=== PATIENT | male | born 1985 | race Hispanic/Latino ===

== ENCOUNTER 2017-11-22 08:33 | Emergency (ER) | payer OTHER ==
[~2017-11-22] VITALS: Ht 172.7 cm; Wt 90.7 kg
[2017-11-22] MEDS ORDERED: LEVOTHYROXINE88 MCG PO (08:47)
[2017-11-22] MEDS ORDERED: NORCO 5-325 TA1 EACH PO (09:52)
[2017-11-22] MEDS ORDERED: ZOFRAN ODT4 MG PO (09:52)
[2017-11-22] MEDS ORDERED: IBUPROFEN600 MG PO (09:52)
== END 2017-11-22 10:57 | disposition home or self-care (01) ==
LOC: ED 08:33
DX: K80.20 Calculus of gallbladder without cholecystitis without obstruction (principal); K76.0 Fatty (change of) liver, not elsewhere classified; R73.9 Hyperglycemia, unspecified; F17.200 Nicotine dependence, unspecified, uncomplicated; Z79.899 Other long term (current) drug therapy
CPT/HCPCS: 76705; 80053; 81001; 83690; 85025; 96361; 96374; 96375; 99284; J1885; J2405; J7030

== ENCOUNTER 2018-09-06 04:43 | Observation (INO) | payer OTHER ==
[~2018-09-06] VITALS: Ht 172.7 cm; Wt 81.2 kg
[~2018-09-06 04:43] MED LIST: IBUPROFEN600 MG PO; LEVOTHYROXINE88 MCG PO; NORCO 5-325 TA1 EACH PO; ZOFRAN ODT4 MG PO
--- NOTE | 2018-09-06 08:45 | NUR ---
NEW ADMIT TO THE FLOOR. PT AWAKE, ALERT AND ORIENTED X3. ORIENTED PT TO ROOM AND CALL LIGHT. AT BEDSIDE AND TRANSLATING NEEDED, PT SPEAKS LITTLE KYRGYZ. IS FLUENT IN KYRGYZ. PT ABLE TO UNDERSTAND SOME WORDS WHEN COMMUNICATING. PT STATES PAIN IS "OK" AND "NO" FEELING SICK AT THIS TIME. PT VOIDING Q/S. PERSONAL SUPPLIES AND CALL LIGHT WITHIN REACH. NO NEEDS.
--- NOTE | 2018-09-06 09:39 | NUR ---
PATIENT RESTING IN BED. IN ROOM. VITAL SIGNS AND I&O DONE. CALL LIGHT WITHIN REACH. NO OTHER NEEDS AT THIS TIME
--- NOTE | 2018-09-06 10:05 | NUR ---
ADMIN DILAUDID 0.6MG IVP FOR REPORTS OF 7/10 ABD PAIN.
--- NOTE | 2018-09-06 10:54 | NUR ---
ADMIN ZOFRAN 8MG IVP FOR N/V.
--- NOTE | 2018-09-06 11:11 | NUR ---
PATIENT RESTING IN BED. IN ROOM. PATIENT CLEANED HIS BODY WITH SURGICAL WIPES. PATIENT USING A CLEAN GOWN. CALL LIGHT WITHIN REACH. NO OTHER NEEDS AT THIS TIME
--- NOTE | 2018-09-06 11:44 | CONS ---
[facility] [address] [place], [place] [address] Signed DATE OF CONSULTATION: 09/06/2018 CHIEF COMPLAINT: Right upper quadrant abdominal pain. HISTORY OF PRESENT ILLNESS: Coy is a 33-year-old gentleman who is known about his gallstone for quite some time. In fact, he took ursodiol in hopes that it would dissolve. It actually increased in size. It now measures around 1.4 to 1.9 cm and is stuck in the neck of his gallbladder. He finally had severe right upper quadrant abdominal pain yesterday with nausea and some diarrhea. He came to the emergency room for evaluation. In the ER, he had pain in the right upper quadrant with a normal white count and normal liver function test. His last ultrasound was in March of 2018. That showed the stone in the neck of the gallbladder, but an unremarkable common bile duct with some fatty liver. Consequently, the ultrasound was not repeated last night. The ER doctor called me and asked me to admit him as a general surgeon on-call. He has been given IV fluids, pain control, and his Levaquin and Flagyl. His is with him today to help interpret. PAST MEDICAL HISTORY: Hypothyroidism and cholelithiasis. PAST SURGICAL HISTORY: None. SOCIAL HISTORY: He likes to smoke. He has few drinks each week. He is to Maria Del Carmen at [phone]. They have 3 children together. He works at the [employer] in [place], [place]. Sissy Albarran is his primary care provider. They prefer the [facility]. FAMILY HISTORY: Mom had diabetes. Dad and his paternal grandfather both had renal failure. His dad was an alcoholic. REVIEW OF SYSTEMS: He had 10 systems reviewed. He mentioned ursodiol for the gallstone. It unfortunately did not work. ALLERGIES: None. MEDICATIONS: 1. [place] 5 mg p.r.n. Electronically Signed By: MAMI ERICKSON MD 09/06/18 1144 PATIENT NAME: COY LIZARRAGA CONSULTATION DATE OF : 85 REPORT #: [id number] PHYSICIAN: MAMI ERICKSON MD PCP: SISSY ALBARRAN PA-C REPORT IS CONFIDENTIAL AND NOT TO BE RELEASED WITHOUT AUTHORIZATION [facility] [address] [place] [id number] Signed 2. Levothyroxine 88 mcg p.o. daily. PHYSICAL EXAMINATION: VITAL SIGNS: His blood pressure is 134/87, heart rate 71, his respiratory rate 18, temperature is 97.8. He is 97% on room air. He is 5 feet 8 inches tall. He is 81 kg. GENERAL: Coy is a 33-year-old gentleman lying supine in his hospital bed. His is at the bedside. She helps interpret. He is obviously in some distress from the pain in his right upper quadrant. He is not jaundiced. LUNGS: Clear to auscultation bilaterally. HEART: Regular rate and rhythm. ABDOMEN: Generally soft and flat with some tenderness in the right upper quadrant and in the mid epigastric area. LABORATORY DATA: His white blood cell count is 7.9, neutrophils 54, hemoglobin 14, potassium 3.3, BUN 15, creatinine 0.87. Urinalysis is negative. Total bilirubin is 0.3. AST 26, ALT 47, alkaline phosphatase 67, albumin 4.3, lipase 14. RADIOGRAPHIC STUDIES: The ultrasound from 04/02/2018 shows some fatty liver with a 1.4 x 1.9 cm stuck in the neck of the gallbladder. The common bile duct was unremarkable. ASSESSMENT AND PLAN: Coy is a 33-year-old gentleman who has known cholelithiasis, cholecystitis. It is apparently stuck in the neck of his gallbladder. He is certainly having pain at this point. He has been admitted given IV fluids and antibiotics. I met with Coy and his . I gave him a pamphlet on the gallbladder written in Irish. We did look at that together with his helping to interpret. He understands the location and function of the gallbladder. We have reviewed laparoscopic versus open cholecystectomy. We have reviewed the idea of an intraoperative cholangiogram and possible stone in the bile duct. He understands there is risk including, but not limited to bleeding, infection, scarring, change in contour of the skin, damage to bowel, damage to main bile duct, incisional hernias, and other unforeseen comorbidities. He has expressed understanding and would like to proceed. Mami Erickson MD [facility]/MODL /[id number] Electronically Signed By: MAMI ERICKSON MD 09/06/18 1144 PATIENT NAME: COY LIZARRAGA CONSULTATION DATE OF : 85 REPORT #: [id number] PHYSICIAN: MAMI ERICKSON MD PCP: SISSY ALBARRAN PA-C REPORT IS CONFIDENTIAL AND NOT TO BE RELEASED WITHOUT AUTHORIZATION [facility] [address] [place], [place] [address] Signed cc: Sissy Erickson MD Copies: MAMI ERICKSON MD ~ Electronically Signed By: MAIM ERICKSON MD 09/06/18 1144 PATIENT NAME: COY LIZARRAGA CONSULTATION DATE OF : 85 REPORT #: [id number] PHYSICIAN: MAMI ERICKSON MD PCP: SISSY ALBARRAN PA-C REPORT IS CONFIDENTIAL AND NOT TO BE RELEASED WITHOUT AUTHORIZATION
--- NOTE | 2018-09-06 12:23 | NUR ---
PT LEFT UNIT FOR SURGERY.
--- NOTE | 2018-09-06 14:18 | NUR ---
09/06/18 1418 Maria Ines Alcala 1347 - PT ARRIVES TO PACU ON 6 L VIA MASK WITH ORAL AIRWAY IN PLACE. PT RESPONSIVE TO VERBAL STIMULUS BUT DOES NOT OPEN EYES. OFFICIAL COURT REPORTER AT BEDSIDE. VSS. SATS 96%. 1350- PT OPENS EYES AND TRIES TO TALK. ORAL AIRWAY REMOVED BY OFFICIAL COURT REPORTER. PT REPORTS PAIN. OFFICIAL COURT REPORTER MEDICATES PT FOR PAIN. PT DENIES NAUSEA. VS. PT TITRATED TO RA WITH SATS >90%. 1358- PT DESATS TO 88%. 2 L VIA NC APPLIED. PT ENC TO COU8GH AND DEEP BREATHE.
--- NOTE | 2018-09-06 15:21 | NUR ---
PT BACK FROM SURGERY. PT ALERT AND ORIENTED X3. PT ON RA, RESP EVEN AND NON LABORED. PT DENIES N/V. X5 LAP SITES NOTED TO ABD, ALL COVERED WITH DRESSING; CDI. ICE OVER SITES, TOLERATING WELL BY PT. PT GIVEN WATER AND JELLO. PT VOIDED 600ML. PERSONAL SUPPLIES WITHIN REACH. NO NEEDS AT THIS TIME. CALL LIGHT WITHIN REACH.
[2018-09-06] MEDS ORDERED: NORCO 10-325 T1 EACH PO (15:39)
[2018-09-06] MEDS ORDERED: PROMETHAZINE HC25 M1 PO (15:40)
--- NOTE | 2018-09-06 16:13 | NUR ---
PATIENT RESTING IN BED. IN ROOM. PATIENT'S DINNER ORDERED. CALL LIGHT WITHIN REACH. NO OTHER NEEDS AT THIS TIME
--- NOTE | 2018-09-06 16:28 | NUR ---
ADMIN DILAUDID 1MG IVP AND ZOFRAN 8MG IVP FOR REPORTS OF 8/10 ABD CRAMPING AND NAUSEA. PT AWAKE, ALERT AND ORIENTED. DRESSINGS' TO ABD ARE CDI, ICE TOLERATED WELL OVER X5 LAP SITES. PT ENCOURAGED TO DRINK FLUIDS. DINNER ORDERS. PT VOIDING Q/S. VS TAKEN AND ARE STABLE. AT BEDSIDE. PERSONAL SUPPLIES AND CALL LIGHT WTIHIN REACH. NO NEEDS AT THIS TIME.
--- NOTE | 2018-09-06 16:51 | NUR ---
PATIENT RESTING IN BED. FAMILY IN ROOM. VITAL SIGNS DONE. CALL LIGHT WITHIN REACH. NO OTHER NEEDS AT THIS TIME
--- NOTE | 2018-09-06 17:11 | NUR ---
PT IS AWAKE VISITING WITH FAMILY IN ROOM, DINNER ORDERED. DENIES NAUSEA AT THIS TIME. RATES PAIN 4/10.
--- NOTE | 2018-09-06 17:29 | NUR ---
ATE 50% OF DINNER, DRINKING FLUIDS WELL. NORCO GIVEN FOR PAIN AFTER EATING. REMAONS ALERT AND VISITING WITH FAMILY. REVIEWED S/SX TO REPORT AND FOLLOW UP APPOINTMENT WITH DR ERICKSON. VERBALIZES UNDERSTANDING, WILL CONT. TO MONITOR FOR TOLERANCE TO PAIN MEDICATION. SCOPE SITES CDI.
--- NOTE | 2018-09-06 17:51 | NUR ---
PATIENT RESTING IN BED. FAMILY IN ROOM. FINAL VITAL SIGNS AND I&O WERE OBTAINED PRIOR TO DISCHARGE FROM THE UNIT
--- NOTE | 2018-09-06 18:00 | NUR ---
DRESSED AND STATES HE WANTS TO GO HOME, DENIES ANY QUESTIONS, HERE TO TRANSPORT HOME. DC AT THIS TIME.
--- NOTE | 2018-09-07 06:55 | OR ---
[facility] [address] [place], [place] [address] Signed DATE OF OPERATION: 09/06/2018 SURGEON: Mami Erickson MD PREOPERATIVE DIAGNOSIS: [id number] cholecystitis with cholelithiasis. POSTOPERATIVE DIAGNOSIS: Mzexl-sb-qrohdda cholecystitis with cholelithiasis. PROCEDURE: Laparoscopic cholecystectomy with intraoperative cholangiogram. ESTIMATED BLOOD LOSS: None. FINDINGS: The intraoperative cholangiogram was unremarkable. The gallstone was larger than 10 mm in diameter in the neck of the gallbladder. He had significant cholesterolosis. He had moderate to severe inflammation to the gallbladder wall with [id number] thickening of the gallbladder wall. INDICATIONS: Coy is a 33-year-old gentleman who has known about his gallstone actually for several years. He tried to take ursodiol to help dissolve the stone. Unfortunately, the followup ultrasound showed that the stone actually increased in size. His last ultrasound was in March of 2018. He does have some fatty liver with a stone measuring 1.4 x 1.9 cm in the neck of his gallbladder. The common bile duct was unremarkable. He had developed significant right upper quadrant abdominal pain last night with nausea and some diarrhea. He therefore came to emergency room for evaluation. He was tender in the right upper quadrant with a normal white count of 7.9. Liver function tests were fine. Lipase was also fine. Ultrasound was not repeated. I was asked to admit him overnight as a general surgeon on-call. He received Levaquin and Flagyl along with pain control, and IV fluids. I met with Fatoumata, his , this morning. I brought with me a [employer] brochure written in Upper Sorbian to share with them. His did an excellent job interpreting. We looked at the [employer] brochure very carefully. He understands the location and function of the gallbladder. We reviewed laparoscopic versus open cholecystectomy. He understands there is risk of surgery including, but not limited to bleeding, infection, scarring, change in contour of the skin, damage to bowel, damage to main bile duct, incisional hernias and other unforeseen comorbidities. 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 They had expressed understanding and wished to proceed. PROCEDURE NOTE: Coy was taken in the operating room and placed in the supine position under general endotracheal tube anesthesia. He was on preoperative antibiotics and we gave him his subcutaneous heparin in the OR. SCDs were utilized. He was then prepped and draped in the usual sterile fashion. All trocars were then placed in usual positions under direct visualization camera without difficulty. We were unable to actually grasp the gallbladder. We created a small hole near the fundus with our cautery and suctioned out mostly clear green bile. He clearly had a large stone in the neck of his gallbladder. It took just a minute to push that stone up and away from the neck of the gallbladder. the triangle of [place] was then carefully dissected free and a clip was placed across the cystic artery and it was divided. We then introduced our intraoperative cholangiocatheter into the cystic duct. The intraoperative cholangiogram was then performed. The contrast flowed quite readily throughout the bile duct and into the duodenum. There were no filling defects. The cystic duct stump was then secured with a PDS Endoloop and 2 clips were placed across the cystic duct stump to young its location. After this, the gallbladder was removed from the gallbladder fossa with the help of the cautery and placed into an EndoCatch bag. The right upper quadrant was irrigated and suctioned out until clear. We then used our laparoscopic suturing device to pass 0 Vicryl suture on either side of the fascia of the subxiphoid trocar site. We had taken pictures throughout for photodocumentation. The gas was then allowed to escape and all the trocars were then removed. The gallbladder was passed off the table to our circulating nurse. The gallbladder was opened and pictures were taken for photodocumentation. The fascia of the supraumbilical trocar site was closed with interrupted in simple [id number] 0 Vicryl sutures. Local anesthetic was copiously injected into all trocar sites. Each trocar site was then closed with interrupted 3-0 Monocryl sutures. Dry gauze and tape were applied to all incisions. Coy was awakened from his anesthesia, extubated in the OR, and taken to recovery room in stable condition. Mami Erickson MD [facility]/MODL /[id number] Electronically Signed By: MAMI ERICKSON MD 09/07/18 0655 PATIENT NAME: COY LIZARRAGA OPERATIVE REPORT DATE OF : 85 REPORT #: [id number] PHYSICIAN: MAMI ERICKSON MD PCP: SISSY LOPEZ PA-C REPORT IS CONFIDENTIAL AND NOT TO BE RELEASED WITHOUT AUTHORIZATION [address] [place], [place] [address] Signed cc: JAYLA Warren MD Andrew L Bower, MD Copies: BRANDYN MOORE MD, ANDREW L MD ~ Electronically Signed By: MAMI ERICKSON MD 09/07/18 0655 PATIENT NAME: COY LIZARRAGA OPERATIVE REPORT DATE OF : 85 REPORT #: [id number] PHYSICIAN: MAMI ERICKSON MD PCP: SISSY LOPEZ PA-C REPORT IS CONFIDENTIAL AND NOT TO BE RELEASED WITHOUT AUTHORIZATION
== END 2018-09-06 18:05 | disposition home or self-care (01) ==
LOC: ED 04:43 → MS 04:45
PROVIDERS: ADMIT Colon & Rectal Surgery
PROC: BF101ZZ Fluoroscopy of Bile Ducts using Low Osmolar Contrast (ICD-10-PCS; 2018-09-06)
PROC: 0FT44ZZ Resection of Gallbladder, Percutaneous Endoscopic Approach (ICD-10-PCS; principal; 2018-09-06 12:30)
DX: K80.12 Calculus of gallbladder with acute and chronic cholecystitis without obstruction (principal); K76.0 Fatty (change of) liver, not elsewhere classified; F17.210 Nicotine dependence, cigarettes, uncomplicated; E03.9 Hypothyroidism, unspecified; Z79.899 Other long term (current) drug therapy; Z79.891 Long term (current) use of opiate analgesic
CPT/HCPCS: 00790; 74300; 80053; 81001; 83690; 85025; 96361; 96365; 96375; 96376; 99284-25; 99406; C9113; G0378; J0330; J1170; J1644; J1885; J1956; J2250; J2405; J2704; J3010; J7030; J7120; Q9967

== ENCOUNTER 2022-08-01 16:57 | Emergency (ER) | payer OTHER ==
[~2022-08-01] VITALS: Ht 172.7 cm; Wt 81.0 kg
[~2022-08-01 16:57] MED LIST changes: +CYCLOBENZAPRINE10 MG PO; +IBUPROFEN IB200 MG PO; +MELOXICAM15 MG PO; +NORCO 10-325 T1 EACH PO; +PROMETHAZINE HC25 M1 PO
[2022-08-01] MEDS ORDERED: FLOMAX0.4 MG PO (19:34)
== END 2022-08-01 19:54 | disposition home or self-care (01) ==
LOC: ED 16:57
DX: N13.2 Hydronephrosis with renal and ureteral calculous obstruction (principal); F17.200 Nicotine dependence, unspecified, uncomplicated
CPT/HCPCS: 36415; 74176; 80053; 81001; 85025; 96361; 96374; 96375; 99284-25; A9270; J1885; J2405; J3010; J7121